=== PATIENT | female | born 1995 | race Caucasian/White ===

== ENCOUNTER 2018-05-07 11:32 | Emergency (ER) | payer OTHER ==
--- NOTE | 2018-05-07 12:09 | EDPHY ---
H & P Stated Complaint: ST Time Seen by Provider: 05/07/18 11:58 HPI/ROS: CHIEF COMPLAINT: Sore throat, adenopathy x2 weeks HISTORY OF PRESENT ILLNESS: 22-year-old immunocompetent female complaining of 2 weeks of sore throat, bilateral tender submandibular adenopathy. Concerned about mononucleosis. Her significant other is not ill. No fever or chills. No change in voice. No chest pain. No abdominal pain. She is not involved in contact sports. No trauma to her abdomen or chest. PRIMARY CARE PROVIDER: Nieves REVIEW OF SYSTEMS: 10 systems reviewed and negative with the exception of the elements mentioned in the history of present illness PAST MEDICAL & SURGICAL HISTORY: No pertinent medical or surgical history SOCIAL HISTORY: Nonsmoker, student PHYSICAL EXAM (Prior to examination, patient consented to physical exam, hands were washed and my usual and customary physical exam procedures followed) 1) GENERAL: Well-developed, well-nourished, alert and oriented. Appears to be in no acute distress. Appears nontoxic 2) HEAD: Normocephalic, atraumatic 3) HEENT: Pupils equal, round, reactive to light bilaterally. Sclera anicteric. Oropharynx: Bilateral tonsils are symmetrically enlarged with no pointing of the uvula. No trismus no drooling. No exudate. Ears bilaterally with normal tympanic membranes. No evidence of otitis media otitis externa 4) NECK: Full range of motion, no meningeal signs. Positive tender submandibular adenopathy bilaterally. 5) LUNGS: Clear auscultation bilaterally, no wheezes, no rhonchi, no retractions. 6) HEART: Regular rate and rhythm, no murmur, no heave, no gallop. 7) ABDOMEN: No guarding, no rebound, no focal tenderness, negative McBurney's, negative Millan's, negative Rovsing's, negative peritoneal sign, no splenomegaly no left upper quadrant pain. 8) MUSCULOSKELETAL: Moving all extremities, no focal areas of tenderness, no obvious trauma. No peripheral edema or discoloration. 9) BACK: No CVA tenderness, no midline vertebral tenderness, no fluctuance, no step-off, no obvious trauma, no visual or palpable abnormality. 10) SKIN: No rash, no petechiae. 11) Psychiatric: Patient is oriented X 3, there is no agitation. DIFFERENTIAL DIAGNOSIS: In no particular order, my differential diagnosis includes, but is not limited to, strep pharyngitis, viral pharyngitis, peritonsillar abscess, retropharyngeal abscess or plegmon, mononucleosis, meningitis, Lemierre syndrome. - Personal History LMP (Females 10-55): Now Current Tetanus Diphtheria and Acellular Pertussis (TDAP): Yes - Medical/Surgical History Hx Asthma: No Hx Chronic Respiratory Disease: No Hx Diabetes: No Hx Cardiac Disease: No Hx Renal Disease: No Hx Cirrhosis: No Hx Alcoholism: No Hx HIV/AIDS: No Hx Splenectomy or Spleen Trauma: No Other PMH: DENIES - Social History Smoking Status: Never smoked Constitutional: Initial Vital Signs Temperature (C) 36.8 C 05/07/18 11:35 Heart Rate 66 05/07/18 11:35 Respiratory Rate 18 05/07/18 11:35 Blood Pressure 119/68 05/07/18 11:35 O2 Sat (%) 99 05/07/18 11:35 O2 Delivery Mode Room Air Allergies/Adverse Reactions: No Known Allergies Allergy (Unverified 05/07/18 11:34) Home Medications: Medication Instructions Recorded methylPREDNISolone [Medrol Dose 4 mg PO DAILY #1 ea 05/07/18 [facility]] Medical Decision Making ED Course/Re-evaluation: Care of patient under supervision of primary Supervising physician Dr Sanabria with whom I discussed case. 1:20 p.m.: Re-evaluation with serial exams. Discussed her negative strep, negative mono testing. Doubt peritonsillar abscess, deep space infection, Lemierre syndrome. I do not think that imaging studies are indicated at this time. Doubt meningitis. No antibiotics at this time. Will prescribed Medrol Dosepak recommend follow up with on-call ENT Dr. Chao Dang later this week ( today is Wednesday). Usual and customary pharyngitis precautions and instructions provided. Patient feels comfortable being discharged. My usual and customary discharge precautions instructions have been provided Care of patient under supervision of primary Supervising physician Dr Sanabria. - Data Points Laboratory Results: 05/07/18 05/07/18 05/07/18 Unknown 12:30 12:15 Monoscreen NEGATIVE (NEGATIVE) Group A Strep Screen NEGATIVE (NEGATIVE) Group A Strep DNA Pending Departure - Departure Disposition: Home, Routine, Self-Care Clinical Impression: Acute pharyngitis Qualifiers: Pharyngitis/tonsillitis etiology: unspecified etiology Qualified Code(s): J02.9 - Acute pharyngitis, unspecified Condition: Good Instructions: Pharyngitis (ED) Additional Instructions: Return to the ER immediately if you cannot swallow, have drooling, fevers, neck stiffness, cannot open your jaw, or any other symptoms that concern you. Referrals: Chao Dang MD [Medical Doctor] - 2-3 days, call for appt. Prescriptions: methylPREDNISolone [Medrol Dose [facility]] 4 mg PO DAILY #1 ea
[2018-05-07 13:47] VITALS: BP 126/70
== END 2018-05-07 13:46 | disposition home or self-care (01) ==
DX: J02.9 Acute pharyngitis, unspecified (principal)

== ENCOUNTER 2018-05-21 18:30 | Emergency (ER) | payer OTHER ==
--- NOTE | 2018-05-21 19:42 | EDPHY ---
H & P Time Seen by Provider: 05/21/18 19:00 HPI/ROS: Chief complaint. Chest tightness HPI. Patient 22-year-old female presents to the emergency department with nausea vomiting and chest tightness. She has had nausea vomiting for 3 days. She has been using DayQuil and NyQuil. Today she had some chest tightness which is central in her chest without radiation. She has mild URI symptoms and feels congested. Slight dizziness on standing. Some coughing. 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 No unusual leg pain or swelling. Chest tightness is not worse with deep breathing or exertion. No fever. ROS 10 systems were reviewed and negative with the exception of the elements mentioned in the history of present illness Past Medical/Surgical History: Healthy Social History: Single, nonsmoker, no alcohol Smoking Status: Never smoked Physical Exam: General Appearance: Alert well-developed female mild distress vital signs are stable Eyes: Pupils equal and round no pallor or injection. ENT, Mouth: Mucous membranes are moist. Respiratory: There are no retractions, lungs are clear to auscultation. Cardiovascular: Regular rate and rhythm. Gastrointestinal: Abdomen is soft and nontender, no masses, bowel sounds normal. Neurological: Awake and alert, sensory and motor exams grossly normal. Skin: Warm and dry, no rashes. Musculoskeletal: Neck is supple nontender. Extremities symmetrical, full range of motion. Psychiatric: Patient is oriented X 3, there is no agitation. Constitutional: Initial Vital Signs Temperature (C) 36.6 C 05/21/18 18:33 Heart Rate 83 05/21/18 18:33 Respiratory Rate 16 05/21/18 18:33 Blood Pressure 146/92 H 05/21/18 18:33 O2 Sat (%) 100 05/21/18 18:33 O2 Delivery Mode Room Air Allergies/Adverse Reactions: No Known Allergies Allergy (Verified 05/21/18 18:36) Home Medications: Medication Instructions Recorded NK [No Known Home Meds] 05/21/18 Medical Decision Making - Diagnostics EKG Interpretation: EKG interpreted by me shows normal sinus rhythm normal interval and axis. QRS is normal there is no significant ST elevation or depression. No arrhythmia. The rate is 62 Imaging Results: Imaging Impressions Chest X-Ray 05/21/18 19:49 Impression: Normal. Procedures: IV normal saline ED Course/Re-evaluation: Re-evaluation at 8:45 p.m. Patient is feeling better. She and I discussed imaging lab EKG findings. We discussed treatment plan including criteria for return importance of follow-up and further evaluation. She expresses understanding agreement Differential Diagnosis: Chest tightness after 3 days of nausea vomiting. Normal cardiac workup. No evidence for pneumonia. Nothing to suggest pulmonary embolus. - Data Points Laboratory Results: Laboratory Results 05/21/18 20:00 05/21/18 20:00 05/21/18 05/21/18 05/21/18 20:15 20:02 20:00 WBC RBC Hgb Hct MCV MCH MCHC RDW Plt Count MPV Neut % (Auto) Lymph % (Auto) Garland % (Auto) Eos % (Auto) Baso % (Auto) Nucleat RBC Rel Count Absolute Neuts (auto) Absolute Lymphs (auto) Absolute Monos (auto) Absolute Eos (auto) Absolute Basos (auto) Absolute Nucleated RBC Immature Gran % Immature Gran # Sodium 138 mEq/L mEq/L (135-145) Potassium 3.6 mEq/L mEq/L (3.5-5.2) Chloride 107 mEq/L mEq/L (97-110) Carbon Dioxide 23 mEq/l mEq/l (22-31) Anion Gap 8 mEq/L mEq/L (6-14) BUN 9 mg/dL mg/dL (7-23) Creatinine 0.5 mg/dL L mg/dL (0.6-1.0) Estimated GFR > 60 Glucose 84 mg/dL mg/dL (70-100) Calcium 9.1 mg/dL mg/dL (8.5-10.4) POC Troponin I 0.00 ng/mL ng/mL TNP (0.00-0.08) 05/21/18 20:00 WBC 6.83 10^3/uL 10^3/uL (3.80-9.50) RBC 4.64 10^6/uL 10^6/uL (4.18-5.33) Hgb 13.3 g/dL g/dL (12.6-16.3) Hct 38.8 % % (38.0-47.0) MCV 83.6 fL fL (81.5-99.8) MCH 28.7 pg pg (27.9-34.1) MCHC 34.3 g/dL g/dL (32.4-36.7) RDW 12.5 % % (11.5-15.2) Plt Count 287 10^3/uL 10^3/uL (150-400) MPV 10.3 fL fL (8.7-11.7) Neut % (Auto) 60.2 % % (39.3-74.2) Lymph % (Auto) 27.4 % % (15.0-45.0) Garland % (Auto) 11.4 % % (4.5-13.0) Eos % (Auto) 0.6 % % (0.6-7.6) Baso % (Auto) 0.3 % % (0.3-1.7) Nucleat RBC Rel Count 0.0 % % (0.0-0.2) Absolute Neuts (auto) 4.11 10^3/uL 10^3/uL (1.70-6.50) Absolute Lymphs (auto) 1.87 10^3/uL 10^3/uL (1.00-3.00) Absolute Monos (auto) 0.78 10^3/uL 10^3/uL (0.30-0.80) Absolute Eos (auto) 0.04 10^3/uL 10^3/uL (0.03-0.40) Absolute Basos (auto) 0.02 10^3/uL 10^3/uL (0.02-0.10) Absolute Nucleated RBC 0.00 10^3/uL 10^3/uL (0-0.01) Immature Gran % 0.1 % % (0.0-1.1) Immature Gran # 0.01 10^3/uL 10^3/uL (0.00-0.10) Sodium Potassium Chloride Carbon Dioxide Anion Gap BUN Creatinine Estimated GFR Glucose Calcium POC Troponin I Medications Given: Discontinued Medications Sodium Chloride (Ns) 1,000 mls @ 0 mls/hr IV EDNOW ONE; Wide Open PRN Reason: Protocol Stop: 05/21/18 19:50 Last Admin: 05/21/18 19:58 Dose: 1,000 mls Point of Care Test Results: Chemistry 05/21/18 05/21/18 20:15 20:02 POC Troponin I 0.00 ng/mL ng/mL TNP (0.00-0.08) Departure - Departure Disposition: Home, Routine, Self-Care Clinical Impression: Viral syndrome Condition: Good Instructions: Viral Syndrome (ED) Additional Instructions: Drink plenty of fluids and stay hydrated. Use the nausea medicine that you have use if you need May use Tylenol and ibuprofen Return for worsening abdominal pain or chest tightness. Recheck in 1-2 days if not improving Referrals: NONE *PRIMARY CARE P,. [Primary Care Provider] - As per Instructions Major Osullivan MD [Medical Doctor] - 2-3 days, if not improved
[2018-05-21] MEDS ORDERED: NS 1,000 ML IV ONE (19:49)
[2018-05-21 20:09] LABS: PLATELET COUNT 287 10^3/uL (150-400)
[2018-05-21 21:04] VITALS: BP 120/75
--- NOTE | 2018-05-21 23:45 | CPEKG ---
Test Reason : OPEN Blood Pressure : / mmHG Vent. Rate : 062 BPM Atrial Rate : 062 BPM P-R Int : 158 ms QRS Dur : 081 ms QT Int : 418 ms P-R-T Axes : 062 075 055 degrees QTc Int : 425 ms Sinus rhythm Confirmed by Wilfredo Delacruz ([id number]) on 05/21/2018 11:44:44 PM Referred By: WILFREDO DELACRUZ Confirmed By:Wilfredo Dealcruz
== END 2018-05-21 21:13 | disposition home or self-care (01) ==
DX: B34.9 Viral infection, unspecified (principal); E86.9 Volume depletion, unspecified
CPT/HCPCS: 84484-ER